=== PATIENT | male | born 1995 | race American Indian/Alaskan Native ===

== ENCOUNTER 2019-11-06 13:16 | Emergency (ER) | payer OTHER ==
[~2019-11-06] VITALS: Ht 180.3 cm; Wt 77.1 kg
[~2019-11-06 13:16] MED LIST: BACTRIM DS TAB1 EACH PO; IBUPROFEN600 MG PO
--- OUTSIDE RECORDS SUMMARY | 2019-11-06 13:18 | XMS ---
PreManage Notification: MICHAEL VAN Security Clinical Evaluator Events No recent Security Events currently on file CRITERIA MET - [facility] - 2 Visits in 30 Days CARE PROVIDERS There are no care providers on record at this time. Wanda has no Care Guidelines for this patient. [facility]12 MO[facility] NOTE: Visits indicate total known visits. ED/C VISIT TRACKING (12 MO.) 11/06/2019 13:[address] [facility] TYPE: Emergency COMPLAINT: - CATHETER PROBLEM 11/05/2019 12:14 [facility] TYPE: Emergency COMPLAINT: - BLOOD IN URINE INPATIENT VISIT TRACKING (12 MO.) No inpatient visits to display in this time frame [email or web address]
[2019-11-06] MEDS ORDERED: NORCO 5-325 TA1 EACH PO (13:41)
[2019-11-06] MEDS ORDERED: TYLENOL WITH C1 EACH PO (15:19)
== END 2019-11-06 15:30 | disposition home or self-care (01) ==
LOC: ED 13:16
DX: T83.098A Other mechanical complication of other urinary catheter, initial encounter (principal); R31.9 Hematuria, unspecified; F17.200 Nicotine dependence, unspecified, uncomplicated; Z79.891 Long term (current) use of opiate analgesic
CPT/HCPCS: 99283

== ENCOUNTER 2024-07-04 14:16 | Emergency (ER) | payer OTHER ==
[~2024-07-04] VITALS: Ht 180.3 cm; Wt 84.3 kg
[~2024-07-04 14:16] MED LIST changes: +NORCO 5-325 TA1 EACH PO; +TYLENOL WITH C1 EACH PO
[2024-07-04] MEDS ORDERED: LACTATED RINGER'S 1,000 ML IV ONE (14:30)
[2024-07-04] MEDS ORDERED: ondansetron HCL 4 MG/2 ML VIAL IV ONE (14:30)
[2024-07-04 14:31] LABS: BASOPHILS 1.4 % (0-2); EOSINOPHILS 3.7 % (0-6); HEMATOCRIT 39.6 % (35.0-50.0); HEMOGLOBIN 13.3 g/dL (12.0-18.0); LYMPHOCYTES 32.7 % (24-44); MCH 28.7 (27-36); MCHC 33.5 g/dl (30-36); MCV 85.6 fl (81-99); MONOCYTES 6.9 % (0-12); NEUTROPHILS 55.3 % (39-80); PLATELET COUNT 383 K/uL (140-440); RBC 4.63 M/ul (4.3-5.7); RDW 13.7 (10.5-15.0)
[2024-07-04 14:49] LABS: ALBUMIN 3.6 g/dL (3.4-5.0); ALBUMIN/GLOBULIN RATIO 0.92 (1.1-2.4); ALCOHOL, MEDICAL <3 ng/dL (<3); ALKALINE PHOSPHATASE 112 U/L (46-116); ALT (SGPT) 30 U/L (14-59); ANION GAP 11.9 (7-21); AST (SGOT) 27 U/L (15-37); BILIRUBIN, TOTAL 0.3 ng/dL (0.2-1.0); BUN/CREATININE RATIO 7.05 (6.0-28.6); CALCIUM 8.8 mg/dL (8.5-10.1); CARBON DIOXIDE 28 mmol/L (21-32); CHLORIDE 104 mmol/L (98-107); CREATINE KINASE 93 U/L (39-308); CREATININE, SERUM 0.85 mg/dL (0.70-1.30); GLOMERULAR FILTRATION RATE,EST 121 mL/min (>60); POTASSIUM 3.9 mmol/L (3.5-5.1); PROTEIN, TOTAL 7.5 g/dL (6.4-8.2); UREA NITROGEN 6 mg/dL (7-18)
[2024-07-04 15:07] LABS: ABO A; RH POSITIVE
[2024-07-04 15:08] LABS: ANTIBODY SCREEN NEGATIVE
[2024-07-04] MEDS ORDERED: HYDROmorphone HCL 1 MG/ML SYR IV ONE ×2 (15:15→17:15)
[2024-07-04] MEDS ORDERED: DIPHTH,PERTUSS(ACELL),TET VAC 0.5 ML SYRINGE IM ONE (16:00)
[2024-07-04 16:42] LABS: BILIRUBIN, URINE NEGATIVE (negative); BLOOD/HGB, URINE NEGATIVE (Negative); KETONE, URINE NEGATIVE (Negative); LEUK ESTERASE, URINE NEGATIVE (negative); NITRITE, URINE NEGATIVE (negative); PH, URINE 7.5 (5-7)
[2024-07-04 16:59] LABS: AMPHETAMINES, URINE NEGATIVE (NEGATIVE); BARBITURATES, URINE NEGATIVE (NEGATIVE); BENZODIAZEPINE, URINE NEGATIVE (NEGATIVE); BUPRENORPHINE, URINE NEGATIVE (NEGATIVE); CANNABINOID, URINE POSITIVE (NEGATIVE); COCAINE, URINE NEGATIVE (NEGATIVE); ECSTASY, URINE NEGATIVE (NEGATIVE); FENTANYL, URINE NEGATIVE (NEGATIVE); METHADONE, URINE NEGATIVE (NEGATIVE); OPIATES, URINE NEGATIVE (NEGATIVE); OXYCODONE, URINE NEGATIVE (NEGATIVE); PHENCYCLIDINE, URINE NEGATIVE (NEGATIVE)
[2024-07-04] MEDS ORDERED: PERCOCET 5-3251 EACH PO (18:04)
== END 2024-07-04 18:11 | disposition home or self-care (01) ==
LOC: ED 14:16
PROVIDERS: Emergency Medicine
DX: S22.32XA Fracture of one rib, left side, initial encounter for closed fracture (principal); S52.592A Other fractures of lower end of left radius, initial encounter for closed fracture; V89.2XXA Person injured in unspecified motor-vehicle accident, traffic, initial encounter; F17.200 Nicotine dependence, unspecified, uncomplicated; Z79.899 Other long term (current) drug therapy; Z23 Encounter for immunization
CPT/HCPCS: 36415; 70450; 71260; 72125; 73110; 73130; 73560; 74177; 80053; 80307; 81003; 82553; 83605; 85025; 86850; 86900; 86901; 90471; 90715; 96375; 96376; 99284-25; G0480; J1170; J2405; J7121; Q9967

== ENCOUNTER 2024-07-09 11:56 | Emergency (ER) | payer OTHER, MEDICAID ==
[~2024-07-09] VITALS: Ht 180.3 cm; Wt 79.8 kg
[~2024-07-09 11:56] MED LIST changes: +PERCOCET 5-3251 EACH PO
[2024-07-09 12:24] VITALS: BP 106/66
== END 2024-07-09 12:24 | disposition home or self-care (01) ==
LOC: ED 11:56
DX: R20.0 Anesthesia of skin (principal); S52.502D Unspecified fracture of the lower end of left radius, subsequent encounter for closed fracture with routine healing; V49.9XXD Car occupant (driver) (passenger) injured in unspecified traffic accident, subsequent encounter; F17.200 Nicotine dependence, unspecified, uncomplicated; Z79.899 Other long term (current) drug therapy
CPT/HCPCS: 99283

== ENCOUNTER 2025-07-12 10:28 | Emergency (ER) | payer OTHER ==
[~2025-07-12] VITALS: Ht 180.3 cm; Wt 77.0 kg
[2025-07-12] MEDS ORDERED: SODIUM CHLORIDE 0.9% 1,000 ML IV ONE (10:45)
[2025-07-12] MEDS ORDERED: PANTOPRAZOLE SODIUM 40 MG/10 ML VIAL IV ONE (10:45)
[2025-07-12 10:47] LABS: BASOPHILS 0.4 % (0.2-1.2); EOSINOPHILS 0 % (0.8-7.0); LYMPHOCYTES 10.8 % (21.8-53.1); MCH 29.1 PG (25.7-32.2); MCHC 34.7 g/dL (32.3-36.5); MCV 83.9 fL (79.0-92.2); MONOCYTES 3.2 % (5.3-12.2); NEUTROPHILS 85.1 % (34.0-67.9); RBC 5.40 M/uL (4.63-6.08)
[2025-07-12 11:01] LABS: ALT (SGPT) 29.0 U/L (14-59); AST (SGOT) 14.0 U/L (15-37); GLOMERULAR FILTRATION RATE,EST 130.0 mL/min (>60); PROTEIN, TOTAL 8.2 g/dL (6.4-8.2); UREA NITROGEN 6.0 mg/dL (7-18)
[2025-07-12] MEDS ORDERED: OMEPRAZOLE40 MG PO (11:22)
[2025-07-12] MEDS ORDERED: ONDANSETRON ODT8 MG PO (11:22)
[2025-07-12] MEDS ORDERED: LIDOCAINE & ANTACID 35 ML BTL PO ONE (11:30)
[2025-07-12 11:35] VITALS: BP 124/70
== END 2025-07-12 11:35 | disposition home or self-care (01) ==
LOC: ED 10:28
PROVIDERS: Emergency Medicine
DX: K29.70 Gastritis, unspecified, without bleeding (principal); F17.200 Nicotine dependence, unspecified, uncomplicated; Z79.899 Other long term (current) drug therapy
CPT/HCPCS: 36415; 80053; 83690; 85025; 96361; 96374; 96375; 99284-25; J2405; J2470; J7030